=== PATIENT | male | born 1995 | race Caucasian/White ===

== ENCOUNTER 2017-09-08 12:33 | Inpatient (IN) | payer OTHER ==
[2017-09-08 12:56] LABS: Anion Gap 19 mmol/L (-14-95); T. Carbon Dioxide 10.9 mmol/L (1.0-85.0); pH (Venous) 7.187 (7.35-7.45); vO2 Saturation-calc 89.9 % (0.0-100.0)
[2017-09-08 13:05] LABS: #Basophils 0.1 thou/uL (0.0-0.2); #Eosinphils 0.1 thou/uL (0.0-0.7); #Lymphocytes 2.6 thou/uL (1.20-3.40); #Monocytes 0.8 thou/uL (0.11-0.59); #Neutrophils 8.2 thou/uL (1.40-6.50); %Basophils 0.9 % (0.0-1.0); %Eosinophils 0.9 % (0.0-10.0); %Monocytes 6.9 % (0.0-10.0); Hematocrit 51.2 % (42.0-52.0); Mean Platelet Volume 6.6 fL (7.4-10.4); Red Blood Cell (RBC) Count 5.15 mill/uL (4.70-6.10); White Blood Cell (WBC) Count 11.8 thou/uL (4.8-10.8)
[2017-09-08] MEDS ORDERED: Ondansetron HCl/PF 4 MG/2 ML Vial ONE (13:12)
[2017-09-08 13:26] LABS: ALT (SGPT) 78 U/L (8-55); AST (SGOT) 27 U/L (5-34); Alkaline Phosphatase 135 U/L (40-150); Anion Gap 31 mmol/L (10-20); BUN (Urea Nitrogen) 30 mg/dL (8.9-20.6); Bilirubin, Total 0.2 mg/dL (0.2-1.2); Calc. Creatinine Clearance 0 mL/min (70-130); Calcium 9.8 mg/dL (7.8-10.44); Chloride 105 mmol/L (98-107); Estimated GFR-MDRD 45; Globulin 3.9 g/dL (2.4-3.5); Lipase 225 U/L (8-78); Magnesium 2.6 mg/dL (1.6-2.6); Phosphorus 6.2 mg/dL (2.3-4.7)
[2017-09-08 13:30] LABS: Carbon Dioxide 9 mmol/L (22-29)
[2017-09-08] MEDS ORDERED: Insulin Regular 100 units/100 ml in NS IVPB SCH (13:30)
[2017-09-08] MEDS ORDERED: Morphine 4 MG/ML VIAL ONE (13:34)
[2017-09-08] MEDS ORDERED: D5 1/2 NS w/20 mEq KCL 1,000 ML IV SCH (14:00)
[2017-09-08 14:35] LABS: Bilirubin Large (Negative); Blood, Urine Negative (Negative); Glucose, Urine (Dipstick) >=1000 mg/dL (Negative); Ketone, Urine 80 mg/dL (Negative); Nitrite Negative (Negative); Protein, Urine (Dipstick) 30 mg/dL (Neg-Trace); Urobilinogen 0.2 mg/dL (0.2-1.0)
[2017-09-08 14:38] LABS: Bacteria/HPF None Seen HPF (None Seen); RBC/HPF None Seen HPF (0-3); Squamous Epithelial 0-3 HPF (0-3)
[2017-09-08 14:51] LABS: Hyaline Casts/LPF 0-3 HYALINE CAST LPF (0-3 Hyaline)
--- NOTE | 2017-09-08 15:20 | RAD ---
CHEST 1 VIEW: Date: 09/08/17 HISTORY: Altered mental status. COMPARISON: None FINDINGS: The lungs are clear. No pneumothorax or effusion. Cardiac silhouette and mediastinal contour within n ormal limits. IMPRESSION: No acute intrathoracic abnormality. POS: C
[2017-09-08] MEDS ORDERED: Dextrose 5 %-0.45 % NaCl 1,000 ML IV PRN ×2 (15:51→16:02)
[2017-09-08] MEDS ORDERED: Dextrose 5% in Water 1,000 ML IV PRN (15:51)
[2017-09-08] MEDS ORDERED: Sodium Chloride 0.9% 1,000 ML IV PRN ×8 (15:51→16:02)
[2017-09-08] MEDS ORDERED: Dextrose 50% Abboject 50 ML SYRINGE SLOW IVP PRN (15:51)
[2017-09-08] MEDS ORDERED: NS 0.9% w/ 20 MEQ KCL 1,000 ML/1,000 ML BAG IV PRN ×2 (15:51)
[2017-09-08] MEDS ORDERED: D5 1/2 NS w/20 mEq KCL 1,000 ML IV PRN (15:51)
[2017-09-08] MEDS ORDERED: ADD ELECTROLYTE REPLACEMENT SET TO PROFILE FS SCH (16:00)
[2017-09-08] MEDS ORDERED: Insulin Regular 300 UNITS/3 ML VIAL IVP SCH (16:00)
[2017-09-08] MEDS ORDERED: Acetaminophen 325 MG TAB PO PRN (16:02)
[2017-09-08] MEDS ORDERED: CCU Electrolyte Replacement 1 EACH IVPB ONE (16:02)
[2017-09-08] MEDS ORDERED: NS 0.9% w/ 20 MEQ KCL 1,000 ML IV PRN ×2 (16:02)
[2017-09-08] MEDS ORDERED: Bisacodyl 5 MG TAB PO PRN (16:02)
[2017-09-08] MEDS ORDERED: Potassium Phosphate 9 MMOL in Sodium Chloride 0.9% 100 ML IVPB PRN (16:33)
[2017-09-08] MEDS ORDERED: Potassium Chloride 40 MEQ in Premix Bag 1 BAG IVPB PRN (16:33)
[2017-09-08] MEDS ORDERED: CCU ELECTROLYTE REPLACEMENT PROTOCOL FS PRN (16:33)
[2017-09-08] MEDS ORDERED: Potassium Chloride 40 MEQ in Sodium Chloride 0.9% 250 ML 250 ML IVPB PRN (16:33)
[2017-09-08] MEDS ORDERED: Potassium Chloride 20 MEQ TAB PO PRN (16:33)
[2017-09-08] MEDS ORDERED: Magnesium 2 GM/NS 0.9% 100 ML 2 GM in Premix Bag 1 BAG IVPB PRN (16:33)
[2017-09-08] MEDS ORDERED: Potassium Phosphate 15 MMOL in Sodium Chloride 0.9% 250 ML 250 ML IV PRN (16:33)
[2017-09-08] MEDS ORDERED: Magnesium Oxide 400 MG TAB PO PRN (16:33)
[2017-09-08] MEDS ORDERED: Potassium Phosphate 12 MMOL in Sodium Chloride 0.9% 250 ML 250 ML IV PRN (16:33)
[2017-09-08 17:08] LABS: Anion Gap 14 mmol/L (10-20); BUN (Urea Nitrogen) 19 mg/dL (8.9-20.6); Calc. Creatinine Clearance 0 mL/min (70-130); Calcium 7.7 mg/dL (7.8-10.44); Carbon Dioxide 16 mmol/L (22-29); Chloride 111 mmol/L (98-107); Estimated GFR-MDRD Greater than 90; Magnesium 1.8 mg/dL (1.6-2.6); Phosphorus 2.8 mg/dL (2.3-4.7)
[2017-09-08 17:16] VITALS: BMI 19.5
[2017-09-08] MEDS ORDERED: Calcium Gluconate 4.6 MEQ in Sodium Chloride 0.9% 100 ML IVPB SCH (18:00)
[2017-09-08] MEDS: HYDROcodone/Acetaminophen 5/325 mg Tablet PO PRN (18:13)
[2017-09-08] MEDS: Ondansetron HCl/PF 4 MG/2 ML Vial IVP PRN (18:13)
[2017-09-08] MEDS: Magnesium Oxide 400 MG TAB PO PRN (18:13)
--- NOTE | 2017-09-08 18:20 | HP ---
PRIMARY CARE PHYSICIAN: [facility]. REASON FOR ADMISSION: Diabetic ketoacidosis. HISTORY OF PRESENT ILLNESS: Mr. Umair Cornelius is a 22-year-old male with a history of type 1 diab etes, currently on insulin therapy with Tresiba and a Humalog sliding scale, who [facility] complaining of nausea, vomiting and abdominal discomfort which began earlier today. Accor ding to the mother who is at bedside, the patient may have had a seizure, which is common when the pa rene's blood chemistries are abnormal. She states that this is not a full seizure, but then brought to the emergency room where he was further evaluated. His primary complaint is abdominal discomfort in the epigastric area. Denies any fevers or cough. The patient was then evaluated in the emergenc y room where he was found to be in diabetic ketoacidosis. His anion gap was 31 with a bicarbonate of 9 and a VBG showing a pH of 7.187. The patient states he had multiple episodes of diabetic ketoacid osis before. Denies any urinary symptoms, no fevers or sick contacts. He reports being compliant wi th his medications. He is now being admitted to the [facility] for further evaluation and treatment of mary jo betic ketoacidosis. PAST MEDICAL HISTORY: Type 1 diabetes. PAST SURGICAL HISTORY: Right humerus repair. CODE STATUS: FULL CODE. SOCIAL HISTORY: The patient denies any alcohol use, tobacco use or illicit drug use. MEDICATIONS: 1. Tresiba 60 units nightly. 2. Humalog sliding scale. ALLERGIES: BACTRIM and TRAZODONE. FAMILY HISTORY: Significant for multiple family members with type 2 diabetes. REVIEW OF SYSTEMS: The following complete review of systems was negative, unless otherwise mentioned in the HPI or below: Constitutional: Weight loss or gain, sense of well-being, ability to conduct usual activities, exerc ise tolerance. Skin/Breast: Rash, itching, changes in hair growth or loss, nail changes, breast lumps, tenderness, swelling, nipple discharge. Eyes: Vision, double vision, tearing, blind spots, pain. ENT/Mouth: Headaches (location, time of onset, duration, precipitating factors), vertigo, lightheade dness, injury. Vision, double vision, tearing, blind spots, pain, nose bleeding, colds, obstruction, discharge, dental difficulties, gingival bleeding, dentures, neck stiffness, pain, tenderness, masses in thyroid or other areas. Cardiovascular: Precordial pain, substernal distress, palpitations, syncope, dyspnea on exertion, or thopnea, nocturnal paroxysmal dyspnea, edema, cyanosis, hypertension, heart murmurs, varicosities, ph lebitis, claudication. Respiratory: Pain, shortness of breath, wheezing, stridor, cough, hemoptysis, fever or night sweats. Gastrointestinal: Poor appetite, dysphagia, indigestion, abdominal pain, heartburn, eructation, naus ea, vomiting, hematemesis, jaundice, constipation, or diarrhea, abnormal stools (lizzie-colored, tarry, bloody, greasy, foul smelling), flatulence, hemorrhoids, recent changes in bowel habits. Genitourinary: Urgency, frequency, dysuria, nocturia, hematuria, polyuria, oliguria, unusual (or sandra nge in) color of urine, stones, hesitancy, change in size of stream, dribbling, acute retention or in continence, libido, potency. Musculoskeletal: Pain, swelling, redness or heat of muscles or joints, limitation, of motion, muscul ar weakness, atrophy, cramps. Neurologic/Psychiatric: Convulsions, paralyses, tremor, incoordination, paresthesias, difficulties w ith memory of speech, sensory or motor disturbances, or muscular coordination (ataxia, tremor), emoti onal problems, anxiety, depression, previous psychiatric care, unusual perceptions, hallucinations. Allergy/Immunologic: Skin rash, anemia, bleeding tendency, polydipsia, polyuria, intolerance to heat or cold. PHYSICAL EXAMINATION: CONSTITUTIONAL/VITAL SIGNS: Blood pressure most recently 139/90, pulse is 100, respirations are 18 a nd O2 saturation 99% on room air. GENERAL: He is in no acute distress, nontoxic appearing. EYES: Pupils are round and reactive to light and accommodation. No scleral icterus, no pale conjunc tivae. MOUTH: Dry oral mucosa. No oral lesions. RESPIRATORY: Equal chest wall expansion. No wheezes, rhonchi, or rales. CARDIOVASCULAR: S1 and S2 present. No murmurs, gallops or rubs. GASTROINTESTINAL: There is generalized, mild tenderness. No guarding, no rebound tenderness. No pe ritoneal signs. MUSCULOSKELETAL: Good range of motion in all 4 extremities. No clubbing, no cyanosis. LYMPHATIC: No swollen or painful cervical or axillary lymph nodes. NEUROLOGIC: No ptosis, no facial asymmetry, no tongue deviation or jaw protrusion, no focal deficits . PSYCHIATRIC: Awake, alert and oriented to time, place and person. Answers questions appropriately. SKIN: Normal skin turgor. LABORATORY AND X-RAY FINDINGS: Laboratory values taken in the emergency room and reviewed by me show ed WBC of 11.8, hemoglobin 17, hematocrit 51.2 and platelet count is 421,000. ABG is 7.187, pCO2 is 26.7. Chemistry shows a sodium of 141, potassium of 3.9, chloride is 105, carbon dioxide is 9, anion gap is 31, BUN is 30, creatinine is 1.91, glucose is 301, magnesium is 2.6. AST and ALT are 27 and 78, alkaline phosphatase is 135, lipase is 225. Urine shows 80 ketones, 1000+ glucose. Tox screen s hows beta hydroxybutyrate of 4.6. Chest x-ray done in the emergency room revealed no acute intrathoracic abnormalities. ASSESSMENT AND PLAN: Mr. Umair Cornelius is a 22-year-old male with past medical history of type 1 diabetes who presents to the emergency room with diabetic ketoacidosis. 1. Diabetic ketoacidosis. 2. We will admit the patient to the Intermediate Care Unit. We will place him on an insulin drip as well as IV hydration. We will continue the diabetic ketoacidosis protocol. Electrolytes will be ch ecked every 4 hours and replete accordingly. Once his anion gap is closed, we can restart subcutaneo us insulin. 3. Seizures. This is most likely secondary to his metabolic derangements pertaining from the diabet ic ketoacidosis. The patient's mother says that he had multiple times of consult with Neurology to s if any further antiepileptic medications are required; however, I would think if they are associat ed with his metabolic derangements that this may not be required. However, we will defer to them. 4. N.p.o. with ice chips. 5. P.r.n. order set. 6. Deep venous thrombosis prophylaxis. 7. FULL CODE. 8. I explained all of this to the patient as well as family at bedside. They are agreeable to the p guilherme of treatment. All questions have been answered. 9. The patient's further hospital course will be dictated by his clinical course while here.
--- NOTE | 2017-09-08 19:05 | RAD ---
ABDOMEN ONE VIEW 09/08/17 HISTORY: Abdominal pain. FINDINGS: A large amount of stool is present throughout the colon. Small bowel gas pattern is nonspecific. No m etallic foreign bodies are apparent. IMPRESSION: Constipation. POS: JOSE LUIS
[2017-09-08 20:34] LABS: Anion Gap 12 mmol/L (10-20); BUN (Urea Nitrogen) 14 mg/dL (8.9-20.6); Calc. Creatinine Clearance 113 mL/min (70-130); Calcium 8.2 mg/dL (7.8-10.44); Carbon Dioxide 21 mmol/L (22-29); Chloride 107 mmol/L (98-107); Estimated GFR-MDRD Greater than 90
[2017-09-08] MEDS: D5 1/2 NS w/20 mEq KCL 1,000 ML IV PRN (20:47)
[2017-09-09] MEDS: HYDROcodone/Acetaminophen 5/325 mg Tablet PO PRN ×5 (00:50→22:14)
[2017-09-09] MEDS: Ondansetron HCl/PF 4 MG/2 ML Vial IVP PRN ×2 (00:50→08:08)
[2017-09-09] MEDS: Magnesium Oxide 400 MG TAB PO PRN ×2 (00:50→06:39)
[2017-09-09 01:26] LABS: Anion Gap 12 mmol/L (10-20); BUN (Urea Nitrogen) 11 mg/dL (8.9-20.6); Calc. Creatinine Clearance 126 mL/min (70-130); Calcium 8.3 mg/dL (7.8-10.44); Carbon Dioxide 20 mmol/L (22-29); Chloride 108 mmol/L (98-107); Estimated GFR-MDRD Greater than 90
[2017-09-09 05:17] LABS: Anion Gap 14 mmol/L (10-20); BUN (Urea Nitrogen) 9 mg/dL (8.9-20.6); Calc. Creatinine Clearance 131 mL/min (70-130); Calcium 8.3 mg/dL (7.8-10.44); Carbon Dioxide 19 mmol/L (22-29); Chloride 107 mmol/L (98-107); Estimated GFR-MDRD Greater than 90; Magnesium 1.5 mg/dL (1.6-2.6); Phosphorus 2.1 mg/dL (2.3-4.7)
[2017-09-09] MEDS: D5 1/2 NS w/20 mEq KCL 1,000 ML IV PRN (10:00)
[2017-09-09] MEDS ORDERED: PRE FILLED SC SCH (10:30)
[2017-09-09] MEDS ORDERED: INSULIN DETEMIR SC SCH (10:30)
--- NOTE | 2017-09-09 11:40 | PDOC.PN ---
- Subjective Encounter Start Date: 09/09/17 Encounter Start Time: 10:45 states he is feeling better and is hungry. no significant complaints otherwise - Objective Resuscitation Status: Resuscitation Status FULL:Full Resuscitation Vital Signs & Weight: Vital Signs (12 hours) Temp Pulse Resp BP Pulse Ox 09/09/17 11:05 98.0 F 82 18 144/105 H 98 09/09/17 08:00 98.0 F 86 16 99 09/09/17 07:00 98.0 F 86 16 158/114 H 99 09/09/17 04:00 99.0 F 85 18 151/118 H 98 09/09/17 00:00 98.9 F 94 20 152/110 H 98 I&O: 09/08/17 09/09/17 09/10/17 06:59 06:59 06:59 Intake Total 1911 Output Total 2275 Balance -364 Result Diagrams: 09/08/17 12:50 09/09/17 03:59 Additional Labs: Accuchecks 09/09/17 09/09/17 09/09/17 11:01 09:53 08:57 POC Glucose 171 H 141 H 141 H 09/09/17 09/09/17 09/09/17 08:06 07:01 06:00 POC Glucose 163 H 133 H 155 H 09/09/17 09/09/17 09/09/17 05:11 04:01 03:01 POC Glucose 137 H 143 H 134 H 09/09/17 09/09/17 09/09/17 02:04 01:02 00:03 POC Glucose 141 H 170 H 135 H 09/08/17 09/08/17 09/08/17 23:01 22:11 21:01 POC Glucose 114 H 112 H 116 H 09/08/17 09/08/17 09/08/17 20:01 19:00 18:00 POC Glucose 128 H 119 H 121 H 09/08/17 16:38 POC Glucose 131 H Phys Exam - Physical Examination Constitutional: NAD HEENT: PERRLA Neck: no nodes, no JVD, supple Respiratory: no wheezing, no rales, clear to auscultation bilateral Cardiovascular: RRR Gastrointestinal: soft, non-tender, no distention Musculoskeletal: no edema, pulses present Neurological: non-focal, moves all 4 limbs Psychiatric: normal affect, A&O x 3 Dx/Plan (1) DKA (diabetic ketoacidoses) Code(s): E13.10 - OTH DIABETES MELLITUS WITH KETOACIDOSIS WITHOUT COMA Status : Acute Qualifiers: Diabetes mellitus type: type 1 Diabetes mellitus complication detail: without coma Qualified Code(s): E10.10 - Type 1 diabetes mellitus with ketoacidosis without coma - Plan cont current plan of care * . transition him to SQ basal insulin with his premeal insulin transfer to the floors later this evening continue to educate the patient on the importance of taking his meds daily
[2017-09-09] MEDS: HumaLOG 300 UNITS/3 ML VIAL SC SCH ×2 (11:52→17:47)
--- NOTE | 2017-09-09 15:33 | CON ---
DATE OF CONSULTATION: 09/09/2017 IMPRESSION: Recurrent seizure in the midst of diabetic ketoacidosis. PLAN: 1. MRI of the brain with contrast. 2. Hold off on anticonvulsant therapy. Mr. Cornelius is a 22-year-old young man with history of diabetes. He was admitted after going uncon scious at home and having an apparent seizure. He was found to be in DKA based on the medical record s, he awoke in the ambulance. He denies any past history of head injury, meningitis, encephalitis, o r febrile seizures. His last seizure prior to this was about a year ago under similar circumstances. On another occasion, he had a syncopal episode after giving blood. He does not report any focal ne urologic symptoms. He does complain of some abdominal pain and has been quite hypertensive as well. PAST MEDICAL HISTORY: Diabetes. ALLERGIES: None. SOCIAL HISTORY: Denies tobacco or illicit drug use. FAMILY HISTORY: Noncontributory. REVIEW OF SYSTEMS: Otherwise, negative. PHYSICAL EXAMINATION: GENERAL: A reasonably well-nourished young man, lying in bed, in no distress. VITAL SIGNS: Blood pressure 160/120, pulse 78, respirations 16. HEENT: Pupils equal and reactive. Conjunctivae clear. Oropharynx clear. NECK: Supple. EXTREMITIES: No cyanosis. NEUROLOGIC: He is alert and appropriate. Speech is fluent and clear. His exam is nonfocal. SUMMARY: A 22-year-old with some rare episodic seizures associated with metabolic stress. I do not think I would start anticonvulsants at this time, but it would be prudent to rule out structural etio logy.
[2017-09-09] MEDS ORDERED: Gadobenate Dimeglumine 529 MG/1 ML (20ML VIAL) ONE (17:13)
--- NOTE | 2017-09-09 19:21 | MRI ---
MRI BRAIN WITH AND WITHOUT GADOLINIUM CONTRAST 09/09/17 HISTORY: Seizures. FINDINGS: No comparison. There is no evidence of acute intracranial hemorrhage or infarct. The ventricles appear normal in siz e, shape, and position. There is no mass effect, shift of midline structures, or abnormal areas of co ntrast enhancement. Mucosal thickening is apparent within the left maxillary sinus. IMPRESSION: No acute intracranial abnormalities are demonstrated. POS: [facility]
[2017-09-10 06:24] LABS: Anion Gap 8 mmol/L (10-20); BUN (Urea Nitrogen) 5 mg/dL (8.9-20.6); Calc. Creatinine Clearance 164 mL/min (70-130); Calcium 8.3 mg/dL (7.8-10.44); Carbon Dioxide 30 mmol/L (22-29); Chloride 105 mmol/L (98-107); Estimated GFR-MDRD Greater than 90; Magnesium 1.9 mg/dL (1.6-2.6)
[2017-09-10] MEDS ORDERED: Insulin Degludec [Tresiba Flextouch U-100] SC SCH ×3 (07:30)
[2017-09-10] MEDS ORDERED: hydrALAZINE 20 MG/ML VIAL SLOW IVP PRN (08:05)
[2017-09-10] MEDS ORDERED: Eucerin (Mineral Oil/Petrolatum,White) 30 gm Jar TOP PRN (08:05)
[2017-09-10] MEDS ORDERED: Loperamide HCl 2 MG CAP PO PRN (08:05)
[2017-09-10] MEDS ORDERED: Ondansetron ODT 4 MG TAB PO PRN (08:05)
[2017-09-10] MEDS ORDERED: Loratadine 10 MG TAB PO PRN (08:05)
[2017-09-10] MEDS ORDERED: Chloraseptic Spray 180 ml Bottle PO PRN (08:05)
[2017-09-10] MEDS ORDERED: Milk Of Magnesia 30 ML UDCUP PO PRN (08:05)
[2017-09-10] MEDS ORDERED: Artificial Tears 18 DROP/0.9 ML EA EYE PRN (08:05)
[2017-09-10] MEDS ORDERED: Mag-Al 1200 mg/1200 mg/30 ML UDCUP PO PRN (08:05)
[2017-09-10] MEDS ORDERED: Temazepam 15 MG CAP PO PRN (08:05)
[2017-09-10] MEDS ORDERED: Diabetic Tussin 200 MG/10 ML UDCUP PO PRN (08:05)
[2017-09-10] MEDS ORDERED: Sodium Chloride 0.65% Nasal 44 ML BOT EA NARE PRN (08:05)
[2017-09-10] MEDS ORDERED: Potassium Chloride 20 MEQ TAB PO SCH (08:15)
[2017-09-10] MEDS ORDERED: INSULIN DETEMIR SC SCH (09:00)
[2017-09-10] MEDS ORDERED: Famotidine 20 MG TAB PO SCH (09:00)
[2017-09-10] MEDS ORDERED: PRE FILLED SC SCH (09:00)
[2017-09-10] MEDS: HumaLOG 300 UNITS/3 ML VIAL SC SCH ×3 (09:44→12:13)
[2017-09-10] MEDS: HYDROcodone/Acetaminophen 5/325 mg Tablet PO PRN (09:54)
--- NOTE | 2017-09-10 11:39 | DIS ---
PRIMARY CARE PHYSICIAN: [facility] call admission DATE OF ADMISSION: 09/08/2017 DATE OF DISCHARGE: 09/10/2017 DISCHARGE DISPOSITION: Home. PRIMARY DISCHARGE DIAGNOSES: 1. Diabetes ketoacidosis. 2. Hypokalemia, corrected. 3. Hypomagnesemia, corrected. 4. Hypophosphatemia, corrected. SECONDARY DISCHARGE DIAGNOSIS: Diabetes type 1. PRIMARY PROCEDURE/OPERATION: None. RADIOLOGICAL INVESTIGATION: Chest x-ray was normal, no acute process. Abdomen x-ray was showing con stipation. MRI brain was normal. SIGNIFICANT LABS: WBC 11.8, hemoglobin 17.0, platelets 421. Sodium 140, potassium 3.3, BUN 5, creat inine 0.64, calcium 8.3, magnesium 1.9, phosphorus 2.8. Urinalysis on admission, glucosuria and keto catrina. Serum ketones on discharge 0.15. Urine culture negative. DISCHARGE MEDICATIONS: The patient will continue all his previous home medications. Humalog 15 unit s subcu t.i.d., Tresiba 62 units subcu daily. The patient is advised to take a stool softener as-nee ded basis. CONTRAINDICATIONS: None. CODE STATUS: FULL CODE. INPATIENT CONSULTANTS: Dr. Tyrell Lazo was consulted for suspected seizures, but he did not have an y seizure type of activity. ALLERGIES: SULFA DRUGS and TRAZODONE. DISCHARGE PLAN: Post hospital, the patient will follow up with primary care physician. HOSPITAL COURSE: A 22-year-old male who was admitted by Dr. Mcnamara. Please see his H&P for further d etails. The patient was admitted by him for diabetic ketoacidosis. As per history report, patient's mother reported some suspected seizure and the patient was complaining of abdominal pain. During is admission, the patient was found with DKA and we treated in IM with DKA protocol treatment and h is DKA was completely resolved. His abnormal electrolytes were replaced while in hospital and [facility]. We consulted Neurology and they were not thinking that patient had any kind of seizure activity and t luann recommended not to start any antiepileptic medication. We did MRI that was normal. Even after correction of DKA, the patient was complaining of abdominal pain and we did x-ray abdomen while in hospital and we found that patient has constipation and that is why we advised him to use st ool softener as needed basis. This patient's diabetes is well controlled. Her DKA is resolved. The patient is asymptomatic, ambul atory, tolerating p.o. well. Old chart reviewed with him. Review of systems reviewed with him and negative. Currently, patient r an out of his insulin therapy and that prescription is given, all other medication he has at home. PHYSICAL EXAMINATION: VITAL SIGNS : Currently, temperature 98.3, pulse 111, respiratory rate 16, saturation 100%, blood pr essure 142/92, weight 140 pounds. GENERAL: The patient is currently alert, awake, no acute distress. HEAD: Normocephalic, atraumatic. LUNGS: Clear to auscultation without any rhonchi or rales. CARDIAC: S1, S2 regular without any murmur. ABDOMEN: Soft and benign without any tenderness. EXTREMITIES: No edema. NEUROLOGIC: Nonfocal examination. Diabetes education given, medication compliance education given. The patient is given education abou t stool softener. Overall, this patient is completely stable for discharge. Total time spent on discharge day was 31 minutes.
[2017-09-10 14:39] VITALS: BP 121/79; TEMP 98.4
== END 2017-09-10 13:22 | disposition home or self-care (01) | DRG 639 ==
LOC: ERS 12:33 → IMCU/EMU 15:38 → T4-A 09-09 15:41
PROVIDERS: ADMIT Hospitalist; ATTEND Hospitalist
DX: E10.10 Type 1 diabetes mellitus with ketoacidosis without coma (principal); E83.42 Hypomagnesemia; Z79.4 Long term (current) use of insulin; E87.6 Hypokalemia; E83.39 Other disorders of phosphorus metabolism; K59.00 Constipation, unspecified
CPT/HCPCS: 36415; 36416; 70553; 71010; 74000; 80048; 80053; 81003; 81015; 82010; 82330; 82803; 83690; 83735; 84100; 85025; 87086; 96361; 96365; 96375; A4216; A9579; J1815; J2270; J2405; J7050

== ENCOUNTER 2017-11-14 21:23 | Inpatient (IN) | payer MEDICAID, OTHER ==
[2017-11-14 22:09] LABS: ALT (SGPT) 75 U/L (8-55); AST (SGOT) 25 U/L (5-34); Albumin 5.5 g/dL (3.5-5.0); Alkaline Phosphatase 168 U/L (40-150); Anion Gap 40 mmol/L (10-20); BUN (Urea Nitrogen) 24 mg/dL (8.9-20.6); Bilirubin, Total 0.2 mg/dL (0.2-1.2); Calc. Creatinine Clearance 0 mL/min (70-130); Calcium 10.4 mg/dL (7.8-10.44); Chloride 90 mmol/L (98-107); Estimated GFR-MDRD 44; Globulin 5.6 g/dL (2.4-3.5); Potassium 4.5 mmol/L (3.5-5.1); Protein, Total 11.1 g/dL (6.0-8.3); Sodium 133 mmol/L (136-145)
[2017-11-14] MEDS ORDERED: Ondansetron HCl/PF 4 MG/2 ML Vial ONE (22:12)
[2017-11-14 22:20] LABS: Carbon Dioxide 8 mmol/L (22-29); Glucose 732 mg/dL (70-105)
[2017-11-14 22:25] LABS: Band 1 % (5-11); Hemoglobin 18.1 g/dL (14.0-18.0); Lymphocytes 47 % (21-51); MDiff Complete? YES; Macrocytosis SLIGHT = 6-15 cells (100X) (0-5/hpf); Mean Corpuscular HGB CONC 32.9 g/dL (32.0-36.0); Mean Corpuscular Hemoglobin 33.1 pg (27.0-31.0); Mean Platelet Volume 6.9 fL (7.4-10.4); Monocytes 2 % (0-10); Neutrophil 50 % (42-75); PLT Morphology Comment Appears Increased; Platelet Count 501 thou/uL (130-400); RBC Distribution Width 13.8 % (11.5-14.5); Red Blood Cell (RBC) Count 5.46 mill/uL (4.70-6.10); White Blood Cell (WBC) Count 14.1 thou/uL (4.8-10.8)
[2017-11-14 22:26] LABS: Magnesium 2.8 mg/dL (1.6-2.6)
[2017-11-14] MEDS ORDERED: Insulin Regular 100 units/100 ml in NS IVPB SCH (22:45)
[2017-11-14] MEDS ORDERED: Insulin Regular 300 UNITS/3 ML VIAL ONE (22:51)
--- NOTE | 2017-11-14 23:05 | RAD ---
PORTABLE CHEST: 11/14/17 HISTORY: Chest pain. COMPARISON: 09/08/17 study. Heart size and mediastinum are within normal limits. The lungs appear clear of infiltrative process. No significant bony findings. IMPRESSION: No active intrathoracic disease. POS: [facility]
[2017-11-14] MEDS ORDERED: Dextrose 5 %-0.45 % NaCl 1,000 ML IV SCH (23:45)
[2017-11-15 00:19] LABS: Bilirubin Negative (Negative); Blood, Urine Trace (Negative); Clarity CLEAR (Clear); Glucose, Urine (Dipstick) >=1000 mg/dL (Negative); Leukocyte Negative (Negative); Nitrite Negative (Negative); Protein, Urine (Dipstick) 100 mg/dL (Neg-Trace); Urobilinogen 0.2 mg/dL (0.2-1.0); pH, Urine 5.5 (5.0-9.0)
[2017-11-15 00:26] LABS: Base Excess-Venous -13.1 mmol/L (-30.0-30.0); Bicarbonate (HCO3v) 12.2 mmol/L (1.0-85.0); CO2 Tension (PvCO2) 27.4 mmHg (41.0-51.0); Calcium, Ionized 1.08 mmol/L (1.12-1.32); Hemoglobin - Calc 15.7 g/dL (12.0-18.0); O2 Tension (PvO2) 45.2 mmHg (35.0-45.0); Potassium 3.8 mmol/L (3.4-4.7); T. Carbon Dioxide 13.1 mmol/L (1.0-85.0); pH (Venous) 7.259 (7.35-7.45); vO2 Saturation-calc 75.2 % (0.0-100.0)
[2017-11-15] MEDS ORDERED: D5 1/2 NS w/20 mEq KCL 1,000 ML IV SCH (00:45)
[2017-11-15 00:49] LABS: Bacteria/HPF None Seen HPF (None Seen); Hyaline Casts/LPF 0-3 HYALINE CAST LPF (0-3 Hyaline); Pathc Cast-AUWi Flag 0.13 (0-2.49); RBC/HPF 0-3 HPF (0-3); Squamous Epithelial None Seen HPF (0-3)
[2017-11-15] MEDS ORDERED: Ondansetron ODT 4 MG TAB SL PRN (01:38)
[2017-11-15] MEDS ORDERED: Sodium Chloride 0.9% 1,000 ML IV SCH (01:38)
[2017-11-15] MEDS ORDERED: Ondansetron HCl/PF 4 MG/2 ML Vial IVP PRN ×2 (01:38→03:19)
[2017-11-15 02:09] VITALS: BMI 17.6
[2017-11-15] MEDS ORDERED: Gabapentin 100 MG CAP PO SCH ×2 (03:00→09:00)
[2017-11-15] MEDS ORDERED: CCU Electrolyte Replacement 1 EACH IVPB ONE (03:19)
[2017-11-15] MEDS ORDERED: D5 1/2 NS w/20 mEq KCL 1,000 ML IV PRN (03:19)
[2017-11-15] MEDS ORDERED: NS 0.9% w/ 20 MEQ KCL 1,000 ML IV PRN ×2 (03:19)
[2017-11-15] MEDS ORDERED: Ondansetron ODT 4 MG TAB PO PRN (03:19)
[2017-11-15] MEDS ORDERED: Dextrose 5 %-0.45 % NaCl 1,000 ML IV PRN (03:19)
[2017-11-15] MEDS ORDERED: Acetaminophen 500 MG TAB PO PRN (03:19)
[2017-11-15] MEDS ORDERED: Sodium Chloride 0.9% 1,000 ML IV PRN ×4 (03:19)
[2017-11-15] MEDS: traMADol HCl 50 MG TAB PO PRN ×3 (04:11→21:25)
[2017-11-15] MEDS ORDERED: Potassium Chloride 40 MEQ in Sodium Chloride 0.9% 250 ML 250 ML IVPB PRN (04:13)
[2017-11-15] MEDS ORDERED: Potassium Phosphate 15 MMOL in Sodium Chloride 0.9% 250 ML 250 ML IV PRN (04:13)
[2017-11-15] MEDS ORDERED: Potassium Phosphate 12 MMOL in Sodium Chloride 0.9% 250 ML 250 ML IV PRN (04:13)
[2017-11-15] MEDS ORDERED: Potassium Chloride 40 MEQ in Premix Bag 1 BAG IVPB PRN (04:13)
[2017-11-15] MEDS ORDERED: CCU ELECTROLYTE REPLACEMENT PROTOCOL FS PRN (04:13)
[2017-11-15] MEDS ORDERED: Potassium Phosphate 9 MMOL in Sodium Chloride 0.9% 100 ML IVPB PRN (04:13)
[2017-11-15] MEDS ORDERED: Potassium Chloride 20 MEQ TAB PO PRN (04:13)
[2017-11-15] MEDS ORDERED: Magnesium Oxide 400 MG TAB PO PRN ×2 (04:13)
[2017-11-15] MEDS ORDERED: Magnesium 2 GM/NS 0.9% 100 ML 2 GM in Premix Bag 1 BAG IVPB PRN (04:13)
[2017-11-15 05:13] LABS: Hemoglobin A1c 13.8 % (4.0-6.0)
[2017-11-15 05:15] LABS: Hemoglobin 13.3 g/dL (14.0-18.0); Mean Corpuscular HGB CONC 35.4 g/dL (32.0-36.0); Mean Corpuscular Hemoglobin 34.5 pg (27.0-31.0); Mean Corpuscular Volume 97.3 fl (80.0-94.0); Mean Platelet Volume 6.3 fL (7.4-10.4); Platelet Count 378 thou/uL (130-400); RBC Distribution Width 13.7 % (11.5-14.5); Red Blood Cell (RBC) Count 3.85 mill/uL (4.70-6.10); White Blood Cell (WBC) Count 12.8 thou/uL (4.8-10.8)
[2017-11-15 05:20] LABS: Anion Gap 13 mmol/L (10-20); BUN (Urea Nitrogen) 15 mg/dL (8.9-20.6); Calc. Creatinine Clearance 96 mL/min (70-130); Calcium 8.4 mg/dL (7.8-10.44); Carbon Dioxide 19 mmol/L (22-29); Chloride 106 mmol/L (98-107); Estimated GFR-MDRD Greater than 90; Glucose 158 mg/dL (70-105); Magnesium 1.9 mg/dL (1.6-2.6); Potassium 3.9 mmol/L (3.5-5.1); Sodium 134 mmol/L (136-145)
--- NOTE | 2017-11-15 05:25 | HP ---
DATE OF ADMISSION: 11/15/2017 PRIMARY CARE PROVIDER: Frances gamble. CHIEF COMPLAINT: Nausea and vomiting. HISTORY OF PRESENT ILLNESS: This is a 22-year-old male who presents to [facility] Emergency Department complaining of persistent nausea and vomiting in the context of k nown diabetes mellitus type 1 with history of DKA. The patient complained of flu-like illness over t he last 2-3 days with coughing, body aches, and diarrhea. The patient took [id number] pain rel ief and antipyretics with persistence of the symptoms. The patient admitted to recent prescription f or gabapentin due to the peripheral neuropathy in the context of his advanced diabetes mellitus type 1. Patient states he has some relief in the feet when using medication. Otherwise, the pain becomes intolerable. The patient denies any recent trauma, injury, or exposure history. The patient was no tably admitted to [facility] in 08/2017 for DKA. The patient does state that he has been compliant with his overall diabetic regimen and denies missing any insulin therapy. In [facility] emergency room, the patient had underwent general evaluation confirming diabetic ketoacidosis with a beta hydroxybutyrate level of 10.5. The patient received intravenous Novolin R as well as morphin e sulfate and aggressive IV fluid hydration. The patient also received Zofran 4 mg IV push x1 dose. Patient was referred to the Hospitalist Service for admission. PAST MEDICAL HISTORY: 1. Diabetic ketoacidosis. 2. Diabetes mellitus type 1 with peripheral neuropathy. 3. Question of noncompliance. 4. Bipolar disorder. PAST SURGICAL HISTORY: Status post right humerus repair. CURRENT MEDICATIONS: 1. Tresiba 62 units subcutaneously b.i.d. 2. Gabapentin 100 mg 1 tab p.o. b.i.d. 3. Humalog 15 units subcutaneously t.i.d. with meals. ALLERGIES: SULFA and TRAZODONE. FAMILY HISTORY: Multiple family members with diabetes mellitus type 2. REVIEW OF SYSTEMS: The following complete review of systems was negative, unless otherwise mentioned in the HPI or below: Constitutional: Weight loss or gain, ability to conduct usual activities. Sk in: Rash, itching. Eyes: Double vision, pain. ENT/Mouth: Nose bleeding, neck stiffness, pain, te nderness. Cardiovascular: Palpitations, dyspnea on exertion, orthopnea. Respiratory: Shortness of breath, wheezing, cough, hemoptysis, fever or night sweats. Gastrointestinal: Poor appetite, abdom inal pain, heartburn, nausea, vomiting, constipation, or diarrhea. Genitourinary: Urgency, frequenc y, dysuria, nocturia. Musculoskeletal: Pain, swelling. Neurologic/Psychiatric: Anxiety, depressio n. Allergy/Immunologic: Skin rash, bleeding tendency. PHYSICAL EXAMINATION: VITAL SIGNS: On admission, blood pressure 181/113, pulse 115, respiratory rate 23, temperature 97.9 degrees Fahrenheit, O2 saturation 99% on room air. GENERAL APPEARANCE: This is a 22-year-old male lethargic, answers questions appropriately, in mild distress. HEENT: Pupils are equal, round, and reactive to light and accommodation. Extraocular muscles are in tact. No scleral icterus, no conjunctival injection. Nares patent. OP is clear. Oral mucosa dry a ppearing. NECK: Supple, no cervical adenopathy, no thyromegaly, no carotid bruits, no JVD appreciated. Cervic al spine with full active and passive range of motion. No meningeal signs appreciated. CHEST: Lungs are clear to auscultation bilaterally. CARDIOVASCULAR: S1, S2 with tachycardia. ABDOMEN: Flat, soft, nontender, nondistended. Bowel sounds are positive in all four quadrants. No hepatosplenomegaly, no abdominal bruits, no rebound or guarding appreciated. EXTREMITIES: Warm and dry with fair turgor. No clubbing, cyanosis, or asymmetric edema appreciated. Pulses palpable distally at the dorsalis pedis, posterior tibial, and popliteal arteries bilaterall y. Capillary refill less than 2 seconds. NEUROLOGIC: Cranial nerves II through XII are grossly intact. No focal or lateralizing signs apprec iated. PERTINENT LABORATORY AND X-RAY FINDINGS: Sodium ranged between 133-140, potassium ranged between 3.8 -4.5, creatinine 1.95 with estimated GFR of 44. Glucose ranged between 175-732, calcium 10.4, magnes ium 2.8. AST of 25, ALT of 75, alkaline phosphatase 168, albumin 5.5, lipase 21. CBC showed a white blood cell count 14.1, hemoglobin 18, hematocrit 55, MCV 101, platelet count of 501 with normal diff erential. Venous blood gas dated 11/15/2017 showed a pH of 7.26, pCO2 of 27.4, pO2 of 45.2, bicarbon ate of 12.2. Urinalysis showed greater than 1000 glucose and ketones. Beta hydroxybutyrate level 10 .56. Influenza A and B antigen dated 11/14/2017 negative. Portable chest x-ray dated 11/14/2017 isabelle wed no acute cardiopulmonary process. Telemetry monitoring shows sinus tachycardia with heart rates in the 110s. ASSESSMENT AND PLAN 1. Diabetic ketoacidosis/diabetes mellitus type 1. We will continue insulin as stated previously. DKA protocol. Continue aggressive IV fluid hydration and monitor urine output. Repeat beta hydroxyb utyrate level in the a.m. 2. Acute kidney injury secondary to #1. We will continue aggressive IV fluid hydration and repeat c reatinine in the a.m. 3. Leukocytosis with thrombocytosis suspect secondarily to #1. We will continue to monitor for evid ence of infectious process. Repeat CBC in the a.m. 4. Metabolic acidosis secondary to diabetic ketoacidosis. Continue DKA protocol. Repeat carbon juve xide level in the a.m. Continue to monitor overall clinical response. 5. Nausea and vomiting, improved with antiemetics including Zofran 4 mg IV q.6 hours p.r.n. Clear l iquids as tolerated. Continue IV fluid hydration. 6. Hypertensive urgency. We will continue to monitor blood pressure trend and clinical response. 7. Prophylaxis. Sequential compression devices while in bed. Pepcid 20 mg p.o. b.i.d. 8. Code status is FULL. Surrogate medical decision maker is patient's uncle Pete Rasmussen.
[2017-11-15] MEDS: HumaLOG 300 UNITS/3 ML VIAL SC SCH ×3 (08:42→17:26)
[2017-11-15] MEDS: Gabapentin 100 MG CAP PO SCH ×3 (08:43→20:38)
[2017-11-15] MEDS: Famotidine 20 MG TAB PO SCH ×2 (08:43→20:38)
[2017-11-15] MEDS ORDERED: INSULIN DEGLUDEC 30 UNIT SQ SCH (09:00)
[2017-11-15] MEDS ORDERED: HumaLOG 300 UNITS/3 ML VIAL SC PRN (09:05)
[2017-11-15] MEDS ORDERED: Dextrose 5% in Water 1,000 ML IV PRN (09:05)
[2017-11-15] MEDS ORDERED: Dextrose 50% Abboject 50 ML SYRINGE SLOW IVP PRN (09:05)
[2017-11-15 09:06] LABS: Anion Gap 9 mmol/L (10-20); BUN (Urea Nitrogen) 12 mg/dL (8.9-20.6); Calc. Creatinine Clearance 98 mL/min (70-130); Calcium 9.1 mg/dL (7.8-10.44); Carbon Dioxide 21 mmol/L (22-29); Chloride 106 mmol/L (98-107); Estimated GFR-MDRD Greater than 90; Glucose 178 mg/dL (70-105); Potassium 3.8 mmol/L (3.5-5.1); Sodium 132 mmol/L (136-145)
--- NOTE | 2017-11-15 09:19 | PDOC.PN ---
- Subjective Encounter Start Date: 11/15/17 Encounter Start Time: 09:17 Mr. Cornelius was quite irritable this morning. He is frustrated with the food, being in the hospital, seeing doctors ect. His only complaint is pain in his feet. - Objective Resuscitation Status: Resuscitation Status FULL:Full Resuscitation MAR Reviewed: Yes Vital Signs & Weight: Vital Signs (12 hours) Temp Pulse Resp BP BP Pulse Ox 11/15/17 07:12 99.0 F 107 H 16 114/79 97 11/15/17 04:00 98.5 F 99 16 98/65 100 11/15/17 01:22 98.5 F 99 16 97 11/15/17 01:20 98.7 F 111 H 18 144/94 H 97 Weight Admit Weight 126 lb 11.2 oz Weight 126 lb 11.2 oz I&O: 11/14/17 11/15/17 11/16/17 06:59 06:59 06:59 Intake Total 2800 257 Output Total 1220 0 Balance 1580 257 Result Diagrams: 11/15/17 04:00 11/15/17 08:33 Additional Labs: Accuchecks 11/15/17 11/15/17 11/15/17 08:18 06:51 05:58 POC Glucose 197 H 251 H 294 H 11/15/17 11/15/17 11/15/17 05:06 04:14 02:16 POC Glucose 220 H 174 H 174 H 11/15/17 01:30 POC Glucose 175 H Phys Exam - Physical Examination HEENT: PERRLA Respiratory: no wheezing, no rales, no rhonchi, clear to auscultation bilateral Cardiovascular: RRR, no significant murmur, no rub Gastrointestinal: soft, non-tender, positive bowel sounds Musculoskeletal: no edema Dx/Plan (1) Diabetes mellitus type 1 Status: Acute (2) DKA (diabetic ketoacidoses) Code(s): E13.10 - OTH DIABETES MELLITUS WITH KETOACIDOSIS WITHOUT COMA Status : Acute Qualifiers: - Plan * DKA- resolved * Will advance his diet, and transition him to subcutaneous insulin * Would normally watch him overnight, but at the mention of this he comes very hostile, and says he feels he can go home tonight. * Will watch him until this evening.
[2017-11-15] MEDS: Insulin Detemir 100 UNITS/ML 20 UNITS in Pre-Filled Syringe 1 EACH SC SCH (10:14)
[2017-11-15] MEDS: HumaLOG 300 UNITS/3 ML VIAL SC PRN ×2 (12:58→17:26)
[2017-11-15 19:50] VITALS: TEMP 98.4
[2017-11-15] MEDS ORDERED: Insulin Detemir 100 UNITS/ML 20 UNITS in Pre-Filled Syringe 1 EACH SC SCH (21:00)
[2017-11-16] MEDS: HumaLOG 300 UNITS/3 ML VIAL SC PRN (05:49)
--- NOTE | 2017-11-16 07:50 | PDOC.PN ---
- Subjective Encounter Start Date: 11/16/17 Encounter Start Time: 07:48 Mr. Sutherland has a much better demeanor today. He wants to go home, and does not have any complaints. - Objective Resuscitation Status: Resuscitation Status FULL:Full Resuscitation MAR Reviewed: Yes Vital Signs & Weight: Vital Signs (12 hours) Temp Pulse Resp BP Pulse Ox 11/16/17 04:00 99 18 121/82 97 11/16/17 00:00 100 18 117/75 98 11/15/17 20:00 98.4 F 107 H 18 97 Weight Admit Weight 126 lb 11.2 oz Weight 126 lb 11.2 oz I&O: 11/15/17 11/16/17 11/17/17 06:59 06:59 06:59 Intake Total 2800 2508 Output Total 1220 1650 Balance 1580 858 Result Diagrams: 11/15/17 04:00 11/15/17 08:33 Additional Labs: Accuchecks 11/16/17 11/15/17 11/15/17 05:49 23:19 20:39 POC Glucose 242 H 262 H 118 H 11/15/17 11/15/17 11/15/17 14:42 12:47 10:57 POC Glucose 299 H 325 H 187 H 11/15/17 11/15/17 08:56 08:18 POC Glucose 173 H 197 H Phys Exam - Physical Examination HEENT: PERRLA Respiratory: no wheezing, no rales, no rhonchi, clear to auscultation bilateral Cardiovascular: RRR, no significant murmur Gastrointestinal: soft, non-tender, positive bowel sounds Musculoskeletal: no edema Dx/Plan (1) Diabetes mellitus type 1 Status: Acute (2) DKA (diabetic ketoacidoses) Code(s): E13.10 - OTH DIABETES MELLITUS WITH KETOACIDOSIS WITHOUT COMA Status : Acute Qualifiers: - Plan * DKA- resolved * DM- better controlled * He is stable for discharge home today.
[2017-11-16] MEDS: HumaLOG 300 UNITS/3 ML VIAL SC SCH (08:43)
[2017-11-16] MEDS: Gabapentin 100 MG CAP PO SCH (08:43)
[2017-11-16] MEDS: Famotidine 20 MG TAB PO SCH (08:43)
[2017-11-16] MEDS: Insulin Detemir 100 UNITS/ML 20 UNITS in Pre-Filled Syringe 1 EACH SC SCH (08:44)
[2017-11-16 10:20] VITALS: BP 113/74
--- NOTE | 2017-11-16 11:30 | DIS ---
DATE OF ADMISSION: 11/15/2017 DATE OF DISCHARGE: 11/16/2017 The patient does not have a primary care physician. DISCHARGE DISPOSITION: Home. PRIMARY DISCHARGE DIAGNOSES: 1. Diabetic ketoacidosis, type 1. 2. Acute viral syndrome. 3. Diabetic peripheral neuropathy. DISCHARGE MEDICATIONS: Include gabapentin 100 mg twice daily, Humalog insulin 15 units 3 times a day with meals and Tresiba FlexTouch 30 units twice a day. CODE STATUS: FULL CODE. ALLERGIES: To SULFAMETHOXAZOLE, TRAZODONE and TRIMETHOPRIM. HOSPITAL COURSE: Mr. Cornelius is a pleasant 22-year-old gentleman who presented to the emergency ro with complaints of nausea and vomiting. He also says that his blood sugars had been running high. When he came into the emergency room, he was found to be in DKA, type 1. He was placed on an insul in drip and the diabetic ketoacidosis resolved. He has had an uneventful hospital course. He states he does not know what happened. He says he has been compliant with his medications and he says he j ust got sick. The patient says he does have insurance, which is active now and he is in the process of trying to find a primary care physician. I did tell him that he can go to one of the local health clinics like the [facility] or [facility] in the meantime while he is trying to g et his primary care physician established, that way he will have some type of safety net, so that he does not run out of his medications. He voiced understanding and he will be discharged home today.
== END 2017-11-16 10:00 | disposition home or self-care (01) | DRG 638 ==
LOC: ERS 21:23 → IMCU/EMU 11-15 01:14
PROVIDERS: ADMIT Family Medicine; ATTEND Family Medicine
DX: E10.10 Type 1 diabetes mellitus with ketoacidosis without coma (principal); N17.9 Acute kidney failure, unspecified; E10.42 Type 1 diabetes mellitus with diabetic polyneuropathy; F31.9 Bipolar disorder, unspecified; Z79.4 Long term (current) use of insulin; Z88.2 Allergy status to sulfonamides; Z88.8 Allergy status to other drugs, medicaments and biological substances; D47.3 Essential (hemorrhagic) thrombocythemia; I16.0 Hypertensive urgency; B34.9 Viral infection, unspecified
CPT/HCPCS: 36415; 36416; 71045; 80048; 80053; 81003; 81015; 82010; 82330; 82435; 82803; 83036; 83690; 83735; 84132; 84295; 85014; 85025; 85027; 96361; 96365; 96366; 96375; 96376; J1815; J2270; J2405; J7042; J7050

== ENCOUNTER 2017-11-24 01:40 | Inpatient (IN) | payer MEDICAID ==
[2017-11-24] MEDS ORDERED: Ondansetron HCl/PF 4 MG/2 ML Vial ONE ×2 (02:43→05:44)
[2017-11-24 02:49] LABS: #Eosinphils 0.1 thou/uL (0.0-0.7); #Monocytes 0.8 thou/uL (0.11-0.59); #Neutrophils 13.7 thou/uL (1.40-6.50); %Basophils 0.2 % (0.0-1.0); %Eosinophils 0.4 % (0.0-10.0); %Lymphocytes 11.9 % (21.0-51.0); %Monocytes 5.1 % (0.0-10.0); %Neutrophils 82.4 % (42.0-75.0); Hemoglobin 16.7 g/dL (14.0-18.0); Mean Corpuscular HGB CONC 34.3 g/dL (32.0-36.0); Mean Corpuscular Hemoglobin 33.4 pg (27.0-31.0); Mean Corpuscular Volume 97.5 fl (80.0-94.0); Mean Platelet Volume 6.3 fL (7.4-10.4); Platelet Count 515 thou/uL (130-400); RBC Distribution Width 13.2 % (11.5-14.5); White Blood Cell (WBC) Count 16.6 thou/uL (4.8-10.8)
[2017-11-24 03:04] LABS: ALT (SGPT) 68 U/L (8-55); AST (SGOT) 37 U/L (5-34); Albumin 4.5 g/dL (3.5-5.0); Alkaline Phosphatase 129 U/L (40-150); Anion Gap 28 mmol/L (10-20); BUN (Urea Nitrogen) 24 mg/dL (8.9-20.6); Bilirubin, Total 0.3 mg/dL (0.2-1.2); CK (CPK) 32 U/L (30-200); Calc. Creatinine Clearance 0 mL/min (70-130); Calcium 10.5 mg/dL (7.8-10.44); Carbon Dioxide 21 mmol/L (22-29); Chloride 95 mmol/L (98-107); Estimated GFR-MDRD 69; Globulin 4.2 g/dL (2.4-3.5); Glucose 143 mg/dL (70-105); Lipase 608 U/L (8-78); Potassium 4.6 mmol/L (3.5-5.1); Protein, Total 8.7 g/dL (6.0-8.3); Sodium 139 mmol/L (136-145)
[2017-11-24 05:25] LABS: Magnesium 1.8 mg/dL (1.6-2.6); Phosphorus 2.7 mg/dL (2.3-4.7)
[2017-11-24 06:09] VITALS: BMI 17.9
[2017-11-24] MEDS ORDERED: Morphine 2 MG/ML SYRINGE SLOW IVP PRN ×2 (06:28→06:29)
[2017-11-24] MEDS ORDERED: Ondansetron HCl/PF 4 MG/2 ML Vial IVP PRN ×2 (06:29→06:33)
[2017-11-24] MEDS ORDERED: Ondansetron ODT 4 MG TAB SL PRN (06:29)
[2017-11-24] MEDS ORDERED: Sodium Chloride 0.9% 1,000 ML IV SCH (06:30)
[2017-11-24] MEDS ORDERED: Calcium Carbonate 500 MG ChewTAB PO PRN (06:33)
[2017-11-24] MEDS ORDERED: Senokot 8.6 MG TAB PO PRN (06:33)
[2017-11-24] MEDS ORDERED: Dextrose 50% Abboject 50 ML SYRINGE SLOW IVP PRN ×2 (06:33→17:49)
[2017-11-24] MEDS ORDERED: Ondansetron ODT 4 MG TAB PO PRN (06:33)
[2017-11-24] MEDS ORDERED: Dextrose 5% in Water 1,000 ML IV PRN ×2 (06:33→17:49)
[2017-11-24] MEDS ORDERED: Insulin Regular 300 UNITS/3 ML VIAL SC PRN ×2 (06:33)
[2017-11-24] MEDS ORDERED: Acetaminophen 325 MG TAB PO PRN (06:33)
[2017-11-24] MEDS ORDERED: Labetalol HCl 100 MG/20 ML VIAL SLOW IVP PRN (06:38)
[2017-11-24] MEDS ORDERED: Morphine 5 MG/ML SYRINGE SLOW IVP PRN (06:38)
[2017-11-24] MEDS ORDERED: hydrALAZINE 20 MG/ML VIAL SLOW IVP PRN (06:38)
--- NOTE | 2017-11-24 06:54 | HP ---
PRIMARY CARE PHYSICIAN: Frances gamble. CHIEF COMPLAINT: Abdominal pain. HISTORY OF PRESENT ILLNESS: The patient is a 22-year-old male with recent diabetic ketoacidosis, pre sented to the emergency room with abdominal discomfort over the last 2 days that got worse yesterday around 4:00 p.m. The pain is around the epigastric region radiating to the left lower quadrant. It is moderate to severe in intensity, aggravated by movement. He felt nauseous and had 1 episode of vo miting. The pain is more or less constant. He denies any fever or chills. He also reported that th e only comfortable position is pulling his knees to his abdomen. In the emergency room, his workup was consistent with lipase of 608 with creatinine 1.31, BUN 24, ani on gap of 28. He received IV fluids with morphine and Zofran in the emergency room. PAST MEDICAL HISTORY: 1. Diabetes mellitus type 1 with diabetic ketoacidosis last week. 2. Diabetic neuropathy. 3. Bipolar disorder. PAST SURGICAL HISTORY: Status post right humerus repair. ALLERGIES: SULFA AND TRAZODONE. CURRENT HOME MEDICATIONS: Tresiba 30 units b.i.d., gabapentin 100 mg twice a day, Humalog 15 units 3 times daily. FAMILY HISTORY: Multiple family members with diabetes. SOCIAL HISTORY: The patient is a former smoker. Denies any alcohol or drug use. REVIEW OF SYSTEMS: The following complete review of systems was negative, unless otherwise mentioned in the HPI or below: Constitutional: Weight loss or gain, ability to conduct usual activities. Skin: Rash, itching. Eyes: Double vision, pain. ENT/Mouth: Nose bleeding, neck stiffness, pain, tenderness. Cardiovascular: Palpitations, dyspnea on exertion, orthopnea. Respiratory: Shortness of breath, wheezing, cough, hemoptysis, fever or night sweats. Gastrointestinal: Poor appetite, abdominal pain, heartburn, nausea, vomiting, constipation, or diarrhea. Genitourinary: Urgency, frequency, dysuria, nocturia. Musculoskeletal: Pain, swelling. Neurologic/Psychiatric: Anxiety, depression. Allergy/Immunologic: Skin rash, bleeding tendency. PHYSICAL EXAMINATION: VITAL SIGNS: Showed temperature 97.6, respirations 20, pulse 106, blood pressure 155/106, O2 saturat ion 98% on room air. GENERAL: A 22-year-old male in mild to moderate distress due to abdominal discomfort. HEENT: Atraumatic, normocephalic, sclerae are anicteric. Dry mucous membrane, no oral lesion. NECK: Supple, no JVD appreciated. No carotid bruit. LUNGS: Clear to auscultation bilaterally. No wheezing or rales. HEART: S1, S2 present. Regular rate and rhythm, tachycardic, no heaves or pulsation. ABDOMEN: Soft with moderate tenderness in the epigastric region, no rebound or guarding appreciated. Bowel sounds present. EXTREMITIES: No edema or calf tenderness. NEUROLOGIC: Grossly nonfocal, moves all 4 extremities. PSYCHIATRY: Alert, awake, oriented x3. SKIN: Warm and dry. LYMPH NODES: No palpable lymph nodes in the neck. PERIPHERAL VASCULAR: Radial pulses palpable bilaterally. MUSCULOSKELETAL: No joint swelling or tenderness. SKIN: Warm and dry. LABORATORY FINDINGS: Lactic acid 2.8 with creatinine 1.31, BUN 24, calcium 10.5 triglyceride 581, li pase 608. WBC was 16.6 with 82.4% neutrophils. His hemoglobin was 16.7. CT scan of the abdomen and pelvis by my review was negative for acute findings except for thickening of the urinary bladder. IMPRESSION: 1. Acute pancreatitis. Possibilities include hypertriglyceridemia versus idiopathic. 2. Acute kidney injury, secondary to #1. 3. Dehydration. 4. Anion gap metabolic acidosis/lactic acidosis secondary to dehydration. 5. Bipolar disorder. 6. Recent diabetic ketoacidosis. 7. Diabetes mellitus type 1 with diabetic neuropathy. 8. Bipolar disorder. 9. Leukocytosis. Please note that patient had leukocytosis during his previous hospitalization as ramona jauregui. PLAN: The patient will be monitored on the medical floor. GI will be consulted. We will keep him n .p.o. except for ice chips. Pain controlled. IV fluids. We will start him on Levemir at 10 units t wice a day while n.p.o. We will gradually increase Levemir based on his blood sugar. Insulin sliding scale with Accu-Cheks every 4 hourly. Repeat labs in a.m. Plan of care was discussed with the patient in detail. He stated understanding.
[2017-11-24 07:32] LABS: Bilirubin Moderate (Negative); Blood, Urine Negative (Negative); Clarity CLEAR (Clear); Glucose, Urine (Dipstick) >=1000 mg/dL (Negative); Leukocyte Negative (Negative); Nitrite Negative (Negative); Protein, Urine (Dipstick) 100 mg/dL (Neg-Trace); Specific Gravity, Urine 1.037 (1.002-1.036); Urobilinogen 0.2 mg/dL (0.2-1.0)
[2017-11-24 07:35] LABS: Bacteria/HPF None Seen HPF (None Seen); Hyaline Casts/LPF 0-3 HYALINE CAST LPF (0-3 Hyaline); RBC/HPF 0-3 HPF (0-3); Squamous Epithelial None Seen HPF (0-3); WBC/HPF 0-3 HPF (0-3)
[2017-11-24] MEDS: Insulin Detemir 100 UNITS/ML 10 UNITS in Admixture Fee 1 EACH SC SCH ×2 (08:08→09:00)
[2017-11-24] MEDS: Sodium Chloride 0.9% 1,000 ML IV SCH ×3 (08:08→20:04)
[2017-11-24] MEDS: Docusate 100 MG CAP PO SCH ×2 (08:09→20:05)
[2017-11-24] MEDS: Famotidine 20 MG TAB PO SCH ×2 (08:10→20:04)
--- NOTE | 2017-11-24 08:45 | CT ---
PRELIMINARY REPORT/[facility]/EMERGENCY AFTER HOURS PROCEDURE: EXAM: CT Abdomen and Pelvis With Intravenous Contrast CLINICAL HISTORY: 22 years old, male; Right lower quadrant (rlq) abdominal pain x 2 days, getting progressively worse. Pain started in rlq and has spread to entire abdomen. Also nausea and vomiting. Denies diarrhea, feve r, chills. TECHNIQUE: Axial computed tomography images of the abdomen and pelvis with intravenous contrast. Coronal reformatted images were created and reviewed. COMPARISON: No relevant prior studies available. FINDINGS: Lower thorax: No acute findings. ABDOMEN: Liver: Unremarkable. No mass. Gallbladder and bile ducts: Unremarkable. No calcified stones. No ductal dilation. Pancreas: Unremarkable. No mass. No ductal dilation. Spleen: Unremarkable. No splenomegaly. Adrenals: Unremarkable. No mass. Kidneys and ureters: Unremarkable. No solid mass. No hydronephrosis. Stomach and bowel: Unremarkable. No obstruction. No mucosal thickening. Appendix: Normal appendix. PELVIS: Bladder: Possible diffuse wall thickening of the urinary bladder which could reflect a cystitis. Reproductive: Unremarkable as visualized. ABDOMEN and PELVIS: Intraperitoneal space: Unremarkable. No free air. No significant fluid collection. Bones/joints: No acute fracture. No dislocation. Soft tissues: Unremarkable. Vasculature: Unremarkable. No abdominal aortic aneurysm. Lymph nodes: Unremarkable. No enlarged lymph nodes. IMPRESSION: 1. No CT evidence of appendicitis. 2. Possible diffuse wall thickening of the urinary bladder which could reflect a cystitis. 3. Otherwise, no acute intra-abdominal or pelvic process. Thank you for allowing us to participate in the care of your patient. Dictated and Authenticated by: Eulogio Forte MD 11/24/2017 3:45 AM Central Time ([place] & [place]) FINAL REPORT CT ABDOMEN AND PELVIS WITH IV CONTRAST: Date: 11/24/17 FINDINGS/IMPRESSION: I agree with the preliminary report given by Dr. Eulogio Forte of [facility]. POS: [facility]
[2017-11-24] MEDS: Morphine 5 MG/ML SYRINGE SLOW IVP PRN ×2 (10:17→18:40)
--- NOTE | 2017-11-24 10:37 | PDOC.PN ---
- Subjective Encounter Start Date: 11/24/17 Encounter Start Time: 10:36 Mr. Cornelius was seen today in follow-up. He continues to have abdominal pain primarily in the epigastric region. He also feels some nausea. - Objective Resuscitation Status: Resuscitation Status FULL:Full Resuscitation MAR Reviewed: Yes Vital Signs & Weight: Vital Signs (12 hours) Temp Pulse Resp BP Pulse Ox 11/24/17 07:31 97.9 F 115 H 16 132/89 98 11/24/17 06:09 97.9 F 116 H 20 154/101 H 98 Weight Admit Weight 125 lb 0.034 oz Weight 125 lb 0.034 oz Result Diagrams: 11/24/17 02:33 11/24/17 02:33 Additional Labs: Accuchecks 11/24/17 08:46 POC Glucose 462 H Phys Exam - Physical Examination HEENT: PERRLA Respiratory: no wheezing, no rales, no rhonchi, clear to auscultation bilateral Cardiovascular: RRR, no significant murmur Gastrointestinal: soft + epigastric tenderness, no guarding or rebound Musculoskeletal: no edema Dx/Plan (1) Acute pancreatitis Code(s): K85.90 - ACUTE PANCREATITIS WITHOUT NECROSIS OR INFECTION, UNSP Status: Acute (2) Diabetes mellitus type 1 Status: Acute - Plan * Acute Pancreatitis- continue Bowel rest * Diabetes Mellitus type 1- will cover with SSI- his CO2 was a bit low on admission, will re-check a BMP in about an hour. He may slide into DKA, and need to go on an insulin drip * Symptom management.
[2017-11-24] MEDS ORDERED: HumaLOG 300 UNITS/3 ML VIAL SC SCH (10:45)
[2017-11-24] MEDS ORDERED: Insulin Regular 300 UNITS/3 ML VIAL SC SCH (11:15)
[2017-11-24 11:31] LABS: Anion Gap 33 mmol/L (10-20); BUN (Urea Nitrogen) 16 mg/dL (8.9-20.6); Calc. Creatinine Clearance 63 mL/min (70-130); Calcium 9.3 mg/dL (7.8-10.44); Chloride 96 mmol/L (98-107); Estimated GFR-MDRD 60; Glucose 508 mg/dL (70-105); Potassium 5.4 mmol/L (3.5-5.1); Sodium 132 mmol/L (136-145)
[2017-11-24 11:34] LABS: Carbon Dioxide 8 mmol/L (22-29)
--- NOTE | 2017-11-24 12:26 | CON ---
DATE OF CONSULTATION: 11/24/2017 REFERRING PHYSICIAN: Chemo Aponte M.D. REASON FOR CONSULTATION: Abdominal pain and nausea. HISTORY OF PRESENT ILLNESS: Mr. Denis Cornelius is 22-year-old thin built male, hospitaliz ed with abdominal pain and nausea yesterday. The pain is over the epigastric area and is sharp and p ersistent. The pain does not radiate to the back. He denies any similar episodes of abdominal pain in the past. The patient has had diabetes mellitus and has had recent diabetic ketoacidosis and hosp italized here. The patient came to the ER with abdominal pain. An abdominal CAT scan done showed no pathology. He has seen serum lipase is elevated, indicative of pancreatitis. The patient does not drink any alcohol. No similar episodes in the past. His lab data shows a lipase of 608. Liver func tion tests are slightly elevated at AST of 37, ALT 68, alkaline phosphatase 129. An abdominal CAT sc an shows no peripancreatic inflammatory changes. His liver appears normal. There is no pathology se en on the CAT scan. No other relevant history. ALLERGIES: SULFA and TRAZODONE. MEDICAL ILLNESSES: 1. Diabetes mellitus. 2. Diabetic neuropathy. 3. History of bipolar disorder, not taking any medication at the present time. SOCIAL HISTORY: The patient smokes a couple of cigarettes per day. No history of alcohol intake. SURGERIES: He has had a right humerus repair in the past. HOME MEDICATIONS: 1. Tresiba 30 units twice a day. 2. Gabapentin. 3. Humalog. FAMILY HISTORY: The family history is significant for diabetes mellitus. REVIEW OF SYSTEMS: A 10-point system reviewed. MANAGER CUSTOMS: No chronic headache. No seizure disorder. No dizziness. Respiratory: No chronic cough, hemoptysis, dyspnea. Cardiovascular: No chest pain, no palpitation. No dyspnea, orthopnea or PND. Gastrointestinal: As in history of present illness. G enitourinary: Non-relevant. Hematologic: Non-relevant. Endocrine: Non-relevant. Neuropsychiatri c: Non-relevant except for a history of bipolar disorder. PHYSICAL EXAMINATION: GENERAL: The patient is thin built, appears comfortable, in no distress. VITAL SIGNS: Stable, afebrile. Pulse is 115, blood pressure is 132/89. HEENT: Conjunctivae are clear. NECK: Supple. No adenitis or thyromegaly noted. CARDIOVASCULAR: First and second heart sounds normal. LUNGS: Clear to auscultation. ABDOMEN: Soft and nondistended. Abdomen is tender over the epigastric area and periumbilical area. There is no rebound or guarding. Bowel sounds are not audible. EXTREMITIES: Reveal no edema. LABORATORY DATA: CBC shows WBC 16,600, hemoglobin is 16.7, hematocrit 48.8, MCV 97.5, platelet count is 515,000, polymorphs 72, lymphocytes 11, monocytes 5. Serum chemistries are sodium 139, potassium 4.6, chloride 95, bicarbonate 21, BUN is 24, creatinine 1.31, glucose 143, calcium 10.5, magnesium 2 .8, bilirubin 0.3, AST 37, ALT 68, alkaline phosphatase 129. Lipase is 608. CLINICAL IMPRESSION: 1. Acute pancreatitis, etiology unclear. He did not take any alcohol intake. The abdominal CAT sca n showed no gallstones. 2. Diabetes mellitus. 3. Diabetic neuropathy. 4. History of bipolar disorder. RECOMMENDATIONS: 1. N.p.o. 2. Analgesics. 3. IV fluids. 4. Abdominal sonogram. I will make further recommendations as time goes by.
[2017-11-24] MEDS ORDERED: D5 1/2 NS w/20 mEq KCL 1,000 ML IV PRN (14:26)
[2017-11-24] MEDS ORDERED: Insulin Regular (Human) 100 UNITS, Admixture Fee 1 EACH in Sodium Chloride 0.9% 100 ML IVPB SCH (14:26)
[2017-11-24] MEDS ORDERED: CCU Electrolyte Replacement 1 EACH IVPB SCH (14:26)
[2017-11-24] MEDS ORDERED: NS 0.9% w/ 20 MEQ KCL 1,000 ML IV PRN ×2 (14:26)
[2017-11-24] MEDS ORDERED: Sodium Chloride 0.9% 1,000 ML IV PRN ×4 (14:26)
[2017-11-24] MEDS ORDERED: Dextrose 5 %-0.45 % NaCl 1,000 ML IV PRN (14:26)
--- NOTE | 2017-11-24 15:50 | PDOC.EVN ---
Event Note - Event Note Event Note: Patient's Blood glucose was tending up, and CO2 was trending down, with an elevated AG- He was moved to the [facility] to be started on an insulin drip. I also spoke to one of the patient's managers at [facility], , Anthony, and informed him that he is currently in the Hospital with a serious medical condition. Anthony told me he would be excused from work, and to show up next week when he gets better. I offered to fax a statement over, but he told me it would not be necessary.
[2017-11-24] MEDS ORDERED: ISOVUE-370 76%-LOCM 1 ML ONE (16:35)
[2017-11-24 16:41] LABS: Anion Gap 19 mmol/L (10-20); BUN (Urea Nitrogen) 11 mg/dL (8.9-20.6); Calc. Creatinine Clearance 83 mL/min (70-130); Calcium 8.9 mg/dL (7.8-10.44); Carbon Dioxide 15 mmol/L (22-29); Chloride 101 mmol/L (98-107); Estimated GFR-MDRD 82; Glucose 207 mg/dL (70-105); Potassium 4.1 mmol/L (3.5-5.1); Sodium 131 mmol/L (136-145)
[2017-11-24 19:09] LABS: Anion Gap 20 mmol/L (10-20); BUN (Urea Nitrogen) 9 mg/dL (8.9-20.6); Calc. Creatinine Clearance 93 mL/min (70-130); Calcium 8.9 mg/dL (7.8-10.44); Carbon Dioxide 18 mmol/L (22-29); Chloride 100 mmol/L (98-107); Estimated GFR-MDRD Greater than 90; Glucose 183 mg/dL (70-105); Potassium 3.9 mmol/L (3.5-5.1); Sodium 134 mmol/L (136-145)
[2017-11-24] MEDS ORDERED: Insulin Detemir 100 UNITS/ML 10 UNITS in Admixture Fee 1 EACH SC SCH (21:00)
[2017-11-24] MEDS: Insulin Detemir 100 UNITS/ML 10 UNITS in Pre-Filled Syringe 1 EACH SC SCH (21:44)
[2017-11-24] MEDS: HumaLOG 300 UNITS/3 ML VIAL SC PRN (21:45)
[2017-11-24 22:58] LABS: Anion Gap 19 mmol/L (10-20); BUN (Urea Nitrogen) 7 mg/dL (8.9-20.6); Calc. Creatinine Clearance 92 mL/min (70-130); Calcium 8.2 mg/dL (7.8-10.44); Carbon Dioxide 19 mmol/L (22-29); Chloride 98 mmol/L (98-107); Estimated GFR-MDRD Greater than 90; Glucose 265 mg/dL (70-105); Potassium 3.8 mmol/L (3.5-5.1); Sodium 132 mmol/L (136-145)
[2017-11-24] MEDS ORDERED: Morphine 4 MG/ML Carpuject SLOW IVP PRN (23:13)
[2017-11-25] MEDS: Sodium Chloride 0.9% 1,000 ML IV SCH ×2 (02:51→09:08)
[2017-11-25] MEDS ORDERED: HYDROcodone/Acetaminophen 5/325 mg Tablet PO PRN (04:34)
[2017-11-25] MEDS: HYDROcodone/Acetaminophen 5/325 mg Tablet PO PRN ×2 (04:40→09:14)
[2017-11-25 04:51] LABS: #Basophils 0.2 thou/uL (0.0-0.2); #Eosinphils 0.2 thou/uL (0.0-0.7); #Lymphocytes 4.1 thou/uL (1.20-3.40); #Monocytes 0.6 thou/uL (0.11-0.59); #Neutrophils 4.3 thou/uL (1.40-6.50); %Basophils 1.6 % (0.0-1.0); %Eosinophils 2.2 % (0.0-10.0); %Monocytes 6.5 % (0.0-10.0); %Neutrophils 45.7 % (42.0-75.0); Hemoglobin 11.3 g/dL (14.0-18.0); Mean Corpuscular HGB CONC 35.4 g/dL (32.0-36.0); Mean Corpuscular Hemoglobin 35.4 pg (27.0-31.0); Mean Corpuscular Volume 99.9 fl (80.0-94.0); Platelet Count 342 thou/uL (130-400); RBC Distribution Width 13.1 % (11.5-14.5); Red Blood Cell (RBC) Count 3.18 mill/uL (4.70-6.10); White Blood Cell (WBC) Count 9.4 thou/uL (4.8-10.8)
[2017-11-25 05:49] LABS: ALT (SGPT) 33 U/L (8-55); AST (SGOT) 16 U/L (5-34); Alkaline Phosphatase 85 U/L (40-150); Anion Gap 13 mmol/L (10-20); BUN (Urea Nitrogen) 6 mg/dL (8.9-20.6); Bilirubin, Total 0.3 mg/dL (0.2-1.2); Calc. Creatinine Clearance 120 mL/min (70-130); Carbon Dioxide 23 mmol/L (22-29); Chloride 106 mmol/L (98-107); Estimated GFR-MDRD Greater than 90; Globulin 2.4 g/dL (2.4-3.5); Glucose 89 mg/dL (70-105); Lipase 580 U/L (8-78); Protein, Total 5.4 g/dL (6.0-8.3); Sodium 139 mmol/L (136-145)
[2017-11-25] MEDS ORDERED: Insulin Detemir 100 UNITS/ML 10 UNITS in Pre-Filled Syringe 1 EACH SC SCH (09:00)
[2017-11-25] MEDS: Docusate 100 MG CAP PO SCH ×2 (09:08→20:42)
[2017-11-25] MEDS: Famotidine 20 MG TAB PO SCH ×2 (09:08→20:42)
--- NOTE | 2017-11-25 10:06 | PDOC.PN ---
- Subjective Encounter Start Date: 11/25/17 Encounter Start Time: 10:04 Mr. Cornelius was seen today in follow-up of Pancreatitis. He says he still has some abdominal pain, slightly more after eating. He says he is hungry however, and wants to eat. - Objective Resuscitation Status: Resuscitation Status FULL:Full Resuscitation MAR Reviewed: Yes Vital Signs & Weight: Vital Signs (12 hours) Temp Pulse Resp BP BP Pulse Ox 11/25/17 08:00 97.8 F 85 18 98 11/25/17 07:22 97.8 F 85 18 117/71 100 11/25/17 04:00 98.0 F 95 20 106/71 100 11/24/17 23:59 98.2 F 103 H 20 115/83 99 Weight Admit Weight 125 lb 0.034 oz Weight 125 lb 0.034 oz I&O: 11/24/17 11/25/17 11/26/17 06:59 06:59 06:59 Intake Total 4650 540 Output Total 1475 Balance 3175 540 Result Diagrams: 11/25/17 03:46 11/25/17 03:46 Additional Labs: Accuchecks 11/25/17 11/24/17 11/24/17 04:19 23:27 20:11 POC Glucose 98 181 H 291 H 11/24/17 11/24/17 11/24/17 20:04 17:59 16:19 POC Glucose 321 H 167 H 177 H 11/24/17 10:38 POC Glucose 513 H Phys Exam - Physical Examination HEENT: PERRLA Respiratory: no wheezing, no rales, no rhonchi, clear to auscultation bilateral Cardiovascular: RRR, no significant murmur Gastrointestinal: soft, positive bowel sounds Musculoskeletal: no edema Dx/Plan (1) Acute pancreatitis Code(s): K85.90 - ACUTE PANCREATITIS WITHOUT NECROSIS OR INFECTION, UNSP Status: Acute (2) Diabetes mellitus type 1 Status: Acute - Plan * DKA- very mild and resolved without having to be placed on an insulin drip * DM- blood glucose is better, will dyana to give a small dose of Levemir to prevent rebounding of his glucose * Pancreatitis- ? resolving- will await further GI recommendations- advance diet when ok with GI * He can be moved out of [facility].
[2017-11-25] MEDS: HumaLOG 300 UNITS/3 ML VIAL SC PRN ×3 (11:34→20:41)
[2017-11-25] MEDS ORDERED: Potassium Chloride 20 MEQ TAB PO SCH (11:45)
[2017-11-25] MEDS ORDERED: Insulin Detemir 100 UNITS/ML 4 UNITS in Pre-Filled Syringe 1 EACH SC SCH (12:00)
[2017-11-25] MEDS: Insulin Detemir 100 UNITS/ML 10 UNITS in Pre-Filled Syringe 1 EACH SC SCH (20:40)
--- NOTE | 2017-11-26 00:17 | PRG ---
DATE OF SERVICE: 11/25/2017 SUBJECTIVE: This is a 22-year-old male with acute pancreatitis, etiology unclear. Patient denies alcohol abuse. Abdominal CAT scan was negative for gallstones. The patient is feeling sachin r today. His amylase and lipase remains elevated, but his abdominal pain is markedly improved. He h as no more nausea. He has been started on clear liquid diet by Dr. Martinez today. As per the nurses, he has had multiple servings of clear liquid diet including jello. At least, he has had 6-7 serving s of liquid diet. The patient feels better and he feels hungry and wants to eat. PHYSICAL EXAMINATION: GENERAL: Appears very comfortable, temperature 97.9 degrees Fahrenheit. Pulse is 96, blood pressure 110/75. CARDIOVASCULAR: Within normal limits. LUNGS: Within normal limits. ABDOMEN: Soft. Abdomen is mildly tender over the epigastric area. There is no rebound or guarding. Bowel sounds are active. LABORATORY DATA: From today, WBC 9400, hemoglobin 11.3, hematocrit 31.8, MCV 99.9, platelet count 34 2, 000. His lipase is today 580, amylase is 246. Blood sugar is 181. Chem-7 shows potassium , bicarbonate is 23. CLINICAL IMPRESSION: Acute pancreatitis, improving. Although his lipase is still elevated, his symp toms are markedly improved. He is tolerating clear liquid diet. RECOMMENDATIONS: 1. Obtain abdominal sonogram. 2. If there is no abdominal pain, consider advancing diet to a diabetic diet tomorrow.
[2017-11-26] MEDS: HYDROcodone/Acetaminophen 5/325 mg Tablet PO PRN (02:50)
[2017-11-26 05:03] LABS: ALT (SGPT) 58 U/L (8-55); AST (SGOT) 95 U/L (5-34); Albumin 2.9 g/dL (3.5-5.0); Alkaline Phosphatase 90 U/L (40-150); Anion Gap 11 mmol/L (10-20); BUN (Urea Nitrogen) 6 mg/dL (8.9-20.6); Bilirubin, Total 0.3 mg/dL (0.2-1.2); Calc. Creatinine Clearance 170 mL/min (70-130); Calcium 8.2 mg/dL (7.8-10.44); Carbon Dioxide 22 mmol/L (22-29); Chloride 108 mmol/L (98-107); Estimated GFR-MDRD Greater than 90; Globulin 2.4 g/dL (2.4-3.5); Glucose 125 mg/dL (70-105); Lipase 397 U/L (8-78); Potassium 3.2 mmol/L (3.5-5.1); Protein, Total 5.3 g/dL (6.0-8.3); Sodium 138 mmol/L (136-145)
[2017-11-26 05:54] LABS: Band 1 % (5-11); Eosinophils 2 % (0-10); Lymphocytes 57 % (21-51); MDiff Complete? YES; Macrocytosis SLIGHT = 6-15 cells (100X) (0-5/hpf); Mean Corpuscular HGB CONC 34.5 g/dL (32.0-36.0); Mean Corpuscular Hemoglobin 34.2 pg (27.0-31.0); Mean Corpuscular Volume 99.1 fl (80.0-94.0); Mean Platelet Volume 6.1 fL (7.4-10.4); Monocytes 2 % (0-10); Neutrophil 38 % (42-75); PLT Morphology Comment Appears Adequate; Platelet Count 304 thou/uL (130-400); White Blood Cell (WBC) Count 7.2 thou/uL (4.8-10.8)
[2017-11-26] MEDS: Docusate 100 MG CAP PO SCH ×2 (08:27→22:00)
[2017-11-26] MEDS: Famotidine 20 MG TAB PO SCH ×2 (08:27→22:00)
[2017-11-26] MEDS ORDERED: Insulin Detemir 100 UNITS/ML 4 UNITS in Pre-Filled Syringe 1 EACH SC SCH ×2 (09:00→16:45)
--- NOTE | 2017-11-26 10:11 | PDOC.PN ---
- Subjective Encounter Start Date: 11/26/17 Encounter Start Time: 10:09 Mr. Cornelius was seen today in follow-up. He says he is " really hungry" and wants to eat something. He denies abdominal pain. He denies nausea or vomiting. - Objective Resuscitation Status: Resuscitation Status FULL:Full Resuscitation MAR Reviewed: Yes Vital Signs & Weight: Vital Signs (12 hours) Temp Pulse Resp BP BP Pulse Ox 11/26/17 07:17 98.1 F 80 16 130/93 H 94 L 11/26/17 04:40 98.4 F 83 16 123/85 95 11/26/17 00:00 98.2 F 97 16 118/81 99 Weight Admit Weight 125 lb 0.034 oz Weight 125 lb 0.034 oz I&O: 11/25/17 11/26/17 11/27/17 06:59 06:59 06:59 Intake Total 4650 5410 Output Total 1475 Balance 3175 5410 Result Diagrams: 11/26/17 04:02 11/26/17 04:02 Additional Labs: Accuchecks 11/26/17 11/25/17 11/25/17 05:30 20:30 16:10 POC Glucose 110 279 H 246 H 11/25/17 11/25/17 11/24/17 10:56 07:47 15:04 POC Glucose 228 H 98 209 H 11/24/17 14:25 POC Glucose 203 H Phys Exam - Physical Examination HEENT: PERRLA Respiratory: no wheezing, no rales, no rhonchi, clear to auscultation bilateral Cardiovascular: RRR, no significant murmur Gastrointestinal: soft, positive bowel sounds + mildly distended, tympanic to percussion Musculoskeletal: no edema Dx/Plan (1) Acute pancreatitis Code(s): K85.90 - ACUTE PANCREATITIS WITHOUT NECROSIS OR INFECTION, UNSP Status: Acute (2) Diabetes mellitus type 1 Status: Acute - Plan * Acute Pancreatitis- improving- etiology unclear * DKA- resolved * DM type 1- blood glucose is stable * Will advance diet, and if he tolerates, then possibly he can be discharged home later.
[2017-11-26] MEDS ORDERED: Potassium Chloride 20 MEQ TAB PO SCH (10:15)
[2017-11-26] MEDS: HumaLOG 300 UNITS/3 ML VIAL SC PRN ×3 (12:04→22:00)
--- NOTE | 2017-11-26 16:11 | PRG ---
DATE OF SERVICE: 11/26/2017 SUBJECTIVE: This is a 22-year-old male with acute pancreatitis, etiology unclear. Abdomin al CAT scan shows no gallstones. The patient's lipase has been coming down and he is actually sympto matically much better. He has been on clear liquid diet whole day yesterday. He has no abdominal pa in, no nausea or vomiting. He feels hungry and he wants to eat. OBJECTIVE: VITAL SIGNS: Afebrile, pulse rate is 92, blood pressure 130/93. CARDIOVASCULAR SYSTEM: First and second heart sounds normal. LUNGS: Clear to auscultation. ABDOMEN: Soft to palpate. Abdomen is nontender. No organomegaly or masses. LABORATORY DATA: His lipase is still slightly high, already have come down. The serum lipase is 397 , amylase is 146. Blood sugar today is 125,000. His chem-7 shows mild hypokalemia, potassium 3.2. RECOMMENDATIONS: 1. Diet: Advance diet to 1800 ADA diet. 2. If he tolerates his diet well without any abdominal pain, nausea or vomiting, may consider discha rge.
[2017-11-26] MEDS ORDERED: Simethicone Chewable 80 MG TAB PO PRN (16:36)
[2017-11-26] MEDS: Insulin Detemir 100 UNITS/ML 10 UNITS in Pre-Filled Syringe 1 EACH SC SCH (22:00)
[2017-11-27 05:06] LABS: Anion Gap 12 mmol/L (10-20); BUN (Urea Nitrogen) 6 mg/dL (8.9-20.6); Calc. Creatinine Clearance 156 mL/min (70-130); Calcium 8.7 mg/dL (7.8-10.44); Carbon Dioxide 29 mmol/L (22-29); Chloride 105 mmol/L (98-107); Estimated GFR-MDRD Greater than 90; Glucose 129 mg/dL (70-105); Sodium 143 mmol/L (136-145)
[2017-11-27] MEDS ORDERED: Insulin Detemir 100 UNITS/ML 10 UNITS in Pre-Filled Syringe 1 EACH SC SCH (09:00)
[2017-11-27] MEDS: Famotidine 20 MG TAB PO SCH (09:43)
[2017-11-27] MEDS: Docusate 100 MG CAP PO SCH (09:44)
[2017-11-27] MEDS: HumaLOG 300 UNITS/3 ML VIAL SC PRN (09:48)
[2017-11-27] MEDS ORDERED: Potassium Chloride 20 MEQ TAB PO SCH (12:30)
[2017-11-27 12:54] VITALS: BP 147/99; TEMP 98.5
--- NOTE | 2017-11-27 13:07 | PDOC.PN ---
- Subjective Encounter Start Date: 11/27/17 Encounter Start Time: 13:06 Mr. Cornelius was seen today in follow-up. He says he is ready to go home. - Objective Resuscitation Status: Resuscitation Status FULL:Full Resuscitation MAR Reviewed: Yes Vital Signs & Weight: Vital Signs (12 hours) Temp Pulse Resp BP Pulse Ox 11/27/17 12:00 98.5 F 87 12 147/99 H 96 11/27/17 08:30 98.5 F 87 12 100 11/27/17 08:00 98.1 F 96 14 138/94 H 100 11/27/17 04:00 98 F 82 16 148/96 H 95 Weight Admit Weight 125 lb 0.034 oz Weight 125 lb 0.034 oz I&O: 11/26/17 11/27/17 11/28/17 06:59 06:59 06:59 Intake Total 5410 2560 Balance 5410 2560 Result Diagrams: 11/26/17 04:02 11/27/17 04:07 Additional Labs: Accuchecks 11/27/17 11/27/17 11/27/17 09:49 06:02 01:00 POC Glucose 334 H 87 259 H 11/26/17 11/26/17 19:44 16:20 POC Glucose 291 H 517 H Phys Exam - Physical Examination HEENT: PERRLA Respiratory: no wheezing, no rales, no rhonchi, clear to auscultation bilateral Cardiovascular: RRR, no significant murmur Gastrointestinal: soft, non-tender, positive bowel sounds Musculoskeletal: no edema Dx/Plan (1) Acute pancreatitis Code(s): K85.90 - ACUTE PANCREATITIS WITHOUT NECROSIS OR INFECTION, UNSP Status: Acute (2) Diabetes mellitus type 1 Status: Acute - Plan * Pancreatitis- resolved * DKA- resolved * Patient is stable for discharge home..
--- NOTE | 2017-11-27 13:47 | DIS ---
DATE OF ADMISSION: 11/24/2017 DATE OF DISCHARGE: 11/26/2017 PRIMARY CARE PHYSICIAN: The patient does not have a primary care physician. DISCHARGE DISPOSITION: Home. PRIMARY DISCHARGE DIAGNOSES: 1. Acute pancreatitis of unknown etiology. 2. Diabetic ketoacidosis. 3. Diabetes mellitus type 1. 4. Diabetic peripheral neuropathy. DISCHARGE MEDICATIONS: These are the same as that on admission and include Tresiba 30 units twice a day, Humalog insulin 15 units t.i.d. with meals, and gabapentin 100 mg twice a day. CODE STATUS: FULL CODE. ALLERGIES: SULFAMETHOXAZOLE, TRAZODONE, and TRIAMTERENE. PROCEDURES DONE DURING ADMISSION: The patient had a CT scan of the abdomen and pelvis and there was no evidence of appendicitis. There was some possible diffuse wall thickening in the urinary bladder which could represent cystitis, otherwise it was negative. HOSPITAL COURSE: Mr. Cornelius is a pleasant 22-year-old gentleman, who presented to the emergency r oom with complaints of nausea, vomiting, and abdominal pain. He was found to be in mild acute pancre atitis. He was made n.p.o. and started on IV fluids as well as IV antiemetics and analgesics. Unfor tunately, he did slip into DKA for a very short period just for a few hours. He actually resolved wi thout ever starting an insulin drip which was planned. His pancreatitis actually improved as well, t he etiology of which was unclear. However, at the time of discharge, his lipase level was improving. He was able to tolerate a solid diet and his blood sugars had improved and he is being discharged h ome.
[2017-11-27 15:57] LABS: Base Excess-Venous -1.3 mmol/L (-30.0-30.0); Bicarbonate (HCO3v) 25.4 mmol/L (1.0-85.0); CO2 Tension (PvCO2) 48.9 mmHg (41.0-51.0); O2 Tension (PvO2) 43.6 mmHg (35.0-45.0); Potassium 4.4 mmol/L (3.4-4.7); pH (Venous) 7.323 (7.35-7.45)
[2017-11-27 15:58] LABS: Calcium, Ionized 1.04 mmol/L (1.12-1.32)
== END 2017-11-27 14:30 | disposition home or self-care (01) | DRG 439 ==
LOC: ERS 01:40 → T4-B 05:55 → IMCU/EMU 15:28 → SURG B 11-25 15:39
PROVIDERS: ADMIT Internal Medicine; ATTEND Internal Medicine
DX: K85.90 Acute pancreatitis without necrosis or infection, unspecified (principal); N17.9 Acute kidney failure, unspecified; E10.10 Type 1 diabetes mellitus with ketoacidosis without coma; E10.42 Type 1 diabetes mellitus with diabetic polyneuropathy; F31.9 Bipolar disorder, unspecified; Z88.2 Allergy status to sulfonamides; Z88.8 Allergy status to other drugs, medicaments and biological substances; Z79.4 Long term (current) use of insulin; Z87.891 Personal history of nicotine dependence; E86.0 Dehydration; E87.6 Hypokalemia
CPT/HCPCS: 36415; 36416; 74177; 80048; 80053; 81001; 82150; 82330; 82550; 82803; 83690; 83735; 84100; 84478; 85014; 85025; 96361; 96374; 96375; 96376; J2270; A4216; J1815; J2405